=== PATIENT | male | born 1975 | race Caucasian/White ===

== ENCOUNTER 2023-07-31 10:52 | Emergency (ER) | payer MEDICAID ==
[~2023-07-31] VITALS: Ht 167.6 cm; Wt 66.0 kg
[2023-07-31 11:27] VITALS: BP 122/81; PULSE 71; RESP 18; TEMP 98; O2SAT 100
[2023-07-31] MEDS ORDERED: NAPR-1176 MT (12:28)
== END 2023-07-31 14:13 | disposition home or self-care (01) ==
LOC: ER 10:52
DX: S93.401A Sprain of unspecified ligament of right ankle, initial encounter (principal); W50.2XXA Accidental twist by another person, initial encounter; Y93.89 Activity, other specified; Y92.89 Other specified places as the place of occurrence of the external cause; Y99.8 Other external cause status
CPT/HCPCS: 73610; 73630; 99284; Z7610